=== PATIENT | female | born 1995 | race Caucasian/White ===

== ENCOUNTER → 2019-02-10 13:15 | Outpatient (CLI) | payer OTHER, MEDICAID, SELFPAY ==
[2019-02-10 16:47] LABS: Hepatitis B Surface Antigen NEGATIVE s/c (NEGATIVE)
[2019-02-10 17:00] LABS: HIV 1 and 2 Antibody NEGATIVE (NEGATIVE); Hep C Virus Ab w/Reflex Quant NEGATIVE s/c (NEGATIVE)
[2019-02-12 14:19] LABS: HSV 1 IgM Screen Negative (Negative); HSV 2 IgM Screen Negative (Negative)
[2019-02-12 14:39] LABS: RPR Screen Nonreactive (Nonreactive)
== END ==
PROVIDERS: Visit Provider Physician Assistant
DX: F19.90 Other psychoactive substance use, unspecified, uncomplicated (principal); R30.0 Dysuria; Z11.3 Encounter for screening for infections with a predominantly sexual mode of transmission
CPT/HCPCS: 36415; 86592; 86694; 86703; 86803; 87340